=== PATIENT | female | born 1990 | race Hispanic/Latino ===

== ENCOUNTER 2018-05-29 22:43 | Emergency (ER) | payer SELFPAY ==
[~2018-05-29] VITALS: Ht 167.6 cm; Wt 67.1 kg
[~2018-05-29 22:43] MED LIST: MACROBID 100 M100 MG PO; TYLENOL WITH C1 EACH PO
--- OUTSIDE RECORDS SUMMARY | 2018-05-29 22:46 | XMS REPORT ---
Author Author [facility] Address Unknown Phone Unavailable Care Team Providers Care Disability Program Navigator Name Role Phone Unavailable Unavailable Payers Payer Name Policy Type Policy Number Effective Date Expiration Date Problems This patient has no known problems. Allergies, Adverse Reactions, Alerts Allergy Name Allergy Type Status Severity Reaction(s) Onset Date Inactive Date Treating Clinician Comments Penicillins DA Active [place] 2018-05-13 00:00:00 lidocaine DA Active [place] 2018-05-13 00:00:00 amoxicillin trihydrate DA Active [place] 2016-03-25 00:00:00 peanut DA Active [place] 2016-03-25 00:00:00 lidocaine DA Active [place] 2016-03-25 00:00:00 morphine DA Active [place] 2016-03-25 00:00:00 Medications This patient has no known medications.
--- OUTSIDE RECORDS SUMMARY | 2018-05-29 22:46 | XMS REPORT | Continuity of Care Document ---
Author Author [facility] Interface Address Unknown Phone Unavailable Problems Problem Status Onset Date Classification Date Reported Comments Source Discharge Diagnosis: Abdominal pain 09/03/2015 09/06/2015 [facility] ABD PAIN Active 09/03/2015 [facility] Discharge Diagnosis: UTI 02/12/2015 02/15/2015 [facility] Discharge Diagnosis: Back pain 02/12/2015 02/15/2015 [facility] Escherichia coli<sup>1, 2</sup> Active 02/12/2015 Problem 09/06/2015 Problem added by Discern Expert. [facility] BACK PAIN Active 02/12/2015 [facility] Medications Medication Details Route Status Patient Instructions Ordering Provider Order Date Source Dicyclomine Hydrochloride 20 MG Oral Tablet [Bentyl] 20 mg=1 tab, PO, QID-Before Meals, PRN Abdominal Pain, # 28 tab, 0 Refill(s) Active 09/03/2015 [facility] Ondansetron 8 MG Disintegrating Tablet [Zofran] 8 mg=1 tab, PO, TID, PRN Nausea and Vomiting, Dissolve tab under tongue, X 5 day, # 15 tab, 0 Refill(s) Active 09/03/2015 [facility] Benadryl 25 mg, Route: IVP, ONCE, Dosing Weight 59.091, kg, Priority: STAT, Start date: 09/03/15 15:36:00 CDT, Stop date: 09/03/15 15:36:00 CDT Inactive 09/03/2015 [facility] Levsin 0.25 mg, Route: IV, ONCE, Dosing Weight 59.091, kg, Priority: STAT, Start date: 09/03/15 15:18:00 CDT, Stop date: 09/03/15 15:18:00 CDT Inactive 09/03/2015 [facility] Ketorolac 30 mg, Route: IVP, Drug form: INJ, ONCE, Dosing Weight 59.091, kg, Priority: STAT, Start date: 09/03/15 15:17:00 CDT, Stop date: 09/03/15 15:17:00 CDT Inactive 09/03/2015 [facility] Reglan 10 mg, 2 mL, Route: IVP, Drug form: INJ, ONCE, Dosing Weight 59.091, kg, Priority: STAT, Start date: 09/03/15 12:35:00 CDT, Stop date: 09/03/15 12:35:00 CDTNotes: (Same as: Reglan) Inactive 09/03/2015 [facility] Zofran 4 mg, 2 mL, Route: IVP, Drug form: INJ, ONCE, Dosing Weight 63.636, kg, Priority: STAT, Start date: 09/03/15 12:08:00 CDT, Stop date: 09/03/15 12:08:00 CDTNotes: (Same as: Zofran) MEDICATION WASTE Product Size: 4 mg Product Wasted: ___ mg Inactive 09/03/2015 [facility] Levsin 0.25 mg, 0.5 mL, Route: IV, Drug form: INJ, ONCE, Dosing Weight 63.636, kg, Start date: 09/03/15 12:08:00 CDT, Stop date: 09/03/15 12:08:00 CDTNotes: (Same as: Levsin) MEDICATION WASTE Pro duct Size: 0.5 mg Product Wasted: ___ mg Inactive 09/03/2015 [facility] Sodium Chloride 0.154 MEQ/ML Injectable Solution 1,000 mL, 1,000 ml/hr, Infuse Over: 1 hr, Route: IV, 1,000, Drug form: INJ, ONCE, Priority: STAT, Dosing Weight 63.636 kg, Start date: 09/03/15 12:08:00 CDT, Duration: 1 doses or times, Stop date: 09/03/15 12:08:00 CDT Inactive 09/03/2015 [facility] Nitrofurantoin 100 MG Oral Capsule [Macrobid] 100 mg=1 cap, PO, BID, X 7 day, # 14 cap, 0 Refill(s) Active 02/12/2015 [facility] Benadryl 25 mg, Route: PO, Drug form: CAP, ONCE, Dosing Weight 63.636, kg, Priority: STAT, Start date: 02/12/15 16:49:00, Stop date: 02/12/15 16:49:00 Inactive 02/12/2015 [facility] Dilaudid 0.5 mg, Route: IVP, ONCE, Dosing Weight 63.636, kg, Priority: STAT, Start date: 02/12/15 16:27:00, Stop date: 02/12/15 16:27:00 Inactive 02/12/2015 [facility] Dilaudid 0.5 mg, Route: IVP, ONCE, Dosing Weight 63.636, kg, Priority: STAT, Start date: 02/12/15 12:56:00, Stop date: 02/12/15 12:56:00 Inactive 02/12/2015 [facility] Sodium Chloride 0.154 MEQ/ML Injectable Solution 1,000 mL, 1,000 ml/hr, Infuse Over: 1 hr, Route: IV, ONCE, Priority: STAT, Dosing Weight 63.636 kg, Start date: 02/12/15 12:56:00, Duration: 1 doses or times, Stop date: 02/12/15 12:56:00 Inactive 02/12/2015 [facility] Sodium Chloride 0.154 MEQ/ML Injectable Solution 1,000 mL, 1,000 ml/hr, Infuse Over: 1 hr, Route: IV, ONCE, Priority: STAT, Dosing Weight 63.636 kg, Start date: 02/12/15 12:55:00, Duration: 1 doses or times, Stop date: 02/12/15 12:55:00 Inactive 02/12/2015 [facility] Allergies, Adverse Reactions, Alerts Substance Category Reaction Severity Reaction type Status Date Reported Comments Source amoxicillin Assertion Propensity to adverse reactions to drug Active [facility] Dilaudid Assertion Drug allergy Active [facility] lidocaine Assertion Drug allergy Active [facility] morphine Assertion Drug allergy Active [facility] Immunizations Immunization Date Given Site Status Last Updated Comments Source Results Order Name Results Value Reference Range Date Interpretation Comments Source CHEM PANEL eGFR 103 mL/min/1.73m2 09/03/2015 Result Comment: The eGFR is calculated using the CKD-EPI formula. In most young, healthy individuals the eGFR will be >90 mL/min/1.73m2. The eGFR declines with age. An eGFR of 60-89 may be normal in some populations, particularly the elderly, for whom the CKD-EPI formula has not been extensively validated. Use of the eGFR is not recommended in the following populations: Individuals with unstable creatinine concentrations, including patients and those with serious co-morbid conditions. Patients with extremes in muscle mass or diet. The data above are obtained from the National Kidney Disease Education Program (NKDEP) which additionally recommends that when the eGFR is used in patients with extremes of body mass index for purposes of drug dosing, the eGFR should be multiplied by the estimated BMI. [facility] CHEM PANEL CO2 25 meq/L 24 - 32 09/03/2015 [facility] CHEM PANEL Sodium Lvl 139 meq/L 135 - 145 09/03/2015 [facility] CHEM PANEL Creatinine Lvl 0.81 mg/dL 0.50 - 1.40 09/03/2015 [facility] CHEM PANEL BUN 10 mg/dL 7 - 22 09/03/2015 [facility] CHEM PANEL Glucose Lvl 117 mg/dL 70 - 99 09/03/2015 [facility] CHEM PANEL Chloride Lvl 107 meq/L 95 - 109 09/03/2015 [facility] CHEM PANEL Potassium Lvl 3.9 meq/L 3.5 - 5.1 09/03/2015 [facility] CHEM PANEL Bili Total 0.4 mg/dL 0.2 - 1.3 09/03/2015 [facility] CHEM PANEL Alk Phos 107 unit/L 39 - 136 09/03/2015 [facility] CHEM PANEL ALT 106 unit/L 0 - 65 09/03/2015 [facility] CHEM PANEL AST 79 unit/L 0 - 37 09/03/2015 [facility] CHEM PANEL Albumin Lvl 4.1 g/dL 3.5 - 5.0 09/03/2015 [facility] CHEM PANEL Total Protein 8.1 g/dL 6.4 - 8.4 09/03/2015 [facility] CHEM PANEL Calcium Lvl 9.1 mg/dL 8.5 - 10.5 09/03/2015 [facility] CHEM PANEL A/G Ratio 1.0 0.7 - 1.6 09/03/2015 [facility] CHEM PANEL B/C Ratio 12 6 - 25 09/03/2015 [facility] CHEM PANEL Globulin 4.0 g/dL 2.0 - 4.0 09/03/2015 [facility] CHEM PANEL AGAP 10.9 meq/L 10.0 - 20.0 09/03/2015 [facility] CHEM PANEL Lipase Lvl 126 unit/L 73 - 393 09/03/2015 [facility] HEMATOLOGY MPV 7.9 fL 7.4 - 10.4 09/03/2015 [facility] HEMATOLOGY RDW 13.9 % 11.5 - 14.5 09/03/2015 [facility] HEMATOLOGY Platelet 328 K/CMM 133 - 450 09/03/2015 [facility] MCHC 32.8 g/dL 32.0 - 36.0 09/03/2015 [facility] HEMATOLOGY Hct 45.0 % 36.0 - 48.0 09/03/2015 [facility] HEMATOLOGY MCV 88.2 fL 80.0 - 98.0 09/03/2015 [facility] Hgb 14.7 g/dL 12.0 - 16.0 09/03/2015 [facility] HEMATOLOGY WBC 7.5 K/CMM 3.7 - 10.4 09/03/2015 [facility] MCH 28.9 pg 27.0 - 31.0 09/03/2015 [facility] RBC 5.10 M/CMM 4.20 - 5.40 09/03/2015 [facility] Lymphocytes 6.8 % 20.0 - 40.0 09/03/2015 [facility] HEMATOLOGY Monocytes 2.7 % 2.0 - 12.0 09/03/2015 [facility] HEMATOLOGY Segs 90.3 % 45.0 - 75.0 09/03/2015 [facility] HEMATOLOGY Basophils 0.2 % 0.0 - 1.0 09/03/2015 [facility] HEMATOLOGY Lymphocytes # 0.5 K/CMM 1.0 - 5.5 09/03/2015 [facility] HEMATOLOGY Monocytes # 0.2 K/CMM 0.0 - 0.8 09/03/2015 [facility] HEMATOLOGY Segs-Bands # 6.8 K/CMM 1.5 - 8.1 09/03/2015 [facility] URINE AND STOOL UA Urobilinogen <=1.0 mg/dL 0.1 - 1.0 09/03/2015 [facility] URINE AND STOOL UA Color Yellow *NA* (09/03/15 1:04 PM) Yellow 09/03/2015 [facility] URINE AND STOOL UA Spec Grav 1.021 <=1.030 09/03/2015 [facility] URINE AND STOOL UA Turbidity Slight *ABN* (09/03/15 1:04 PM) Clear 09/03/2015 [facility] URINE AND STOOL UA Glucose 150 mg/dL Negative mg/dL 09/03/2015 [facility] URINE AND STOOL UA Ketones Negative mg/dL Negative mg/dL 09/03/2015 [facility] URINE AND STOOL UA Protein Negative mg/dL Negative mg/dL 09/03/2015 [facility] URINE AND STOOL UA pH 6.0 5.0 - 8.0 09/03/2015 [facility] URINE AND STOOL UA Leuk Est Small *ABN* (09/03/15 1:04 PM) Negative 09/03/2015 [facility] URINE AND STOOL UA WBC 6 /HPF 0 - 5 09/03/2015 [facility] URINE AND STOOL UA Sq Epi Many /LPF Few /LPF 09/03/2015 [facility] URINE AND STOOL UA Bili Negative *NA* (09/03/15 1:04 PM) Negative 09/03/2015 [facility] URINE AND STOOL UA Nitrite Negative (09/03/15 1:04 PM) Negative 09/03/2015 [facility] URINE AND STOOL UA Blood Moderate *ABN* (09/03/15 1:04 PM) Negative 09/03/2015 [facility] URINE AND STOOL UA Bacteria Many /HPF None Seen /HPF 09/03/2015 [facility] URINE AND STOOL UA RBC 2 /HPF 0 - 2 09/03/2015 [facility] URINE CHEM U Preg Negative (09/03/15 1:04 PM) Negative 09/03/2015 [facility] Pelvis w Transvag and Pelvis Doppler US Pelvis w Transvag and Pelvis Doppler US ULTRASOUND PELVIS WITH DOPPLER TECHNIQUE: Grayscale, color and Doppler transabdominal and transvaginal imaging of the pelvis was performed with standard technique. HISTORY: Abdominal pain, acute; right lower quadrant pain COMPARISON: CT abdomen/pelvis dated 09/03/2015 FINDINGS: TRANSABDOMINAL: The uterus measures 8.7 x 2.7 x 5.2 cm in size. The uterine parenchyma appears normal without evidence of fibroids. The ovaries and endometrial stripe are best characterized transvaginally. TRANSVAGINAL: Normal uterine contour and morphology. There is normal parenchymal echotexture. The endometrial stripe is normal and measures 2 mm in thickness. Intrauterine device in place in expected positioning. Both ovaries are normal in size and appearance. The right ovary measures 2.4 x 2.9 x 1.5 cm and the left ovary measures 3.8 x 2.0 x 4.0 cm. Doppler evaluation reveals normal arterial and venous waveforms in both ovaries. There are no adnexal masses. There is no free fluid in the pelvic cul-de-sac. IMPRESSION: Normal study Intrauterine device in expected positioning. SL: [id number] 09/03/2015 - - Read by: Steve Pool MD Dictated Date/time: 09/03/15 15:43 Electronically Signed by: Steve Pool MD 09/03/15 15:45 FINAL REPORT [facility] ED Abdomen/Pelvis IV contrast only CT ED Abdomen/Pelvis IV contrast only CT Study: ED Abdomen/Pelvis IV contrast only CT Clinical Indication: Right lower quadrant pain Comparison: None TECHNIQUE: Multiple axial CT images of the abdomen and pelvis were acquired following the administration of intravenous contrast. Sagittal and coronal reformatted images were performed. CT Radiation Dose DLP 1366.95 mGy-cm FINDINGS: The visualized lung bases are clear bilaterally. Diffuse cortical scarring throughout the right kidney is seen. Multiple subcentimeter calyceal stones throughout the right kidney varying in size from 2 mm to 5 mm are seen. Patient is status post cholecystectomy. No intrahepatic or extra hepatic biliary duct dilatation is seen. Liver, pancreas, spleen, adrenal glands, and left kidney are unremarkable. Urinary bladder is well-distended. Intrauterine device in the uterus is seen. Visualized ovaries are unremarkable.The visualized hollow viscera and appendix are normal in appearance. No intraperitoneal free air, free fluid, or pathologic adenopathy is seen. The superficial soft tissues are unremarkable. No suspicious osseous lesions are seen. IMPRESSION: 1. No acute intra-abdominal/pelvic abnormality. 2. Nonobstructive right nephrolithiasis. SL: [id number] 09/03/2015 - - Read by: Victor Hugo Hart MD Dictated Date/time: 09/03/15 14:19 Electronically Signed by: Victor Hugo Hart MD 09/03/15 14:21 FINAL REPORT [facility] URINE AND STOOL UA Urobilinogen <=1.0 mg/dL 0.1 - 1.0 02/12/2015 [facility] URINE AND STOOL UA Color Ltyellow 02/12/2015 [facility] URINE AND STOOL UA RBC 1 /HPF 0 - 2 02/12/2015 [facility] URINE AND STOOL UA Leuk Est Small *ABN* (02/12/15 5:13 PM) Negative 02/12/2015 [facility] URINE AND STOOL UA Sq Epi Moderate /LPF Few /LPF 02/12/2015 [facility] URINE AND STOOL UA WBC 18 /HPF 0 - 5 02/12/2015 [facility] URINE AND STOOL UA Blood Small *ABN* (02/12/15 5:13 PM) Negative 02/12/2015 [facility] URINE AND STOOL UA Nitrite Negative (02/12/15 5:13 PM) Negative 02/12/2015 [facility] URINE AND STOOL UA pH 5.0 5.0 - 8.0 02/12/2015 [facility] URINE AND STOOL UA Protein Negative mg/dL Negative mg/dL 02/12/2015 [facility] URINE AND STOOL UA Turbidity Marked *ABN* (02/12/15 5:13 PM) Clear 02/12/2015 [facility] URINE AND STOOL UA Spec Grav 1.016 <=1.030 02/12/2015 [facility] URINE AND STOOL UA Bili Negative *NA* (02/12/15 5:13 PM) Negative 02/12/2015 [facility] URINE AND STOOL UA Glucose Negative mg/dL Negative mg/dL 02/12/2015 [facility] URINE AND STOOL UA Ketones 20 mg/dL Negative mg/dL 02/12/2015 [facility] CARDIAC ENZYMES Total CK 69 unit/L 12 - 191 02/12/2015 [facility] CHEM PANEL eGFR 91 mL/min/1.73m2 02/12/2015 Result Comment: The eGFR is calculated using the CKD-EPI formula. In most young, healthy individuals the eGFR will be >90 mL/min/1.73m2. The eGFR declines with age. An eGFR of 60-89 may be normal in some populations, particularly the elderly, for whom the CKD-EPI formula has not been extensively validated. Use of the eGFR is not recommended in the following populations: Individuals with unstable creatinine concentrations, including patients and those with serious co-morbid conditions. Patients with extremes in muscle mass or diet. The data above are obtained from the National Kidney Disease Education Program (NKDEP) which additionally recommends that when the eGFR is used in patients with extremes of body mass index for purposes of drug dosing, the eGFR should be multiplied by the estimated BMI. [facility] CHEM PANEL AST 21 unit/L 0 - 37 02/12/2015 [facility] CHEM PANEL Alk Phos 113 unit/L 39 - 136 02/12/2015 [facility] CHEM PANEL Bili Total 0.8 mg/dL 0.2 - 1.3 02/12/2015 [facility] CHEM PANEL ALT 58 unit/L 0 - 65 02/12/2015 [facility] CHEM PANEL Albumin Lvl 4.4 g/dL 3.5 - 5.0 02/12/2015 [facility] CHEM PANEL Total Protein 8.5 g/dL 6.4 - 8.4 02/12/2015 [facility] CHEM PANEL Creatinine Lvl 0.9 mg/dL 0.5 - 1.4 02/12/2015 [facility] CHEM PANEL Glucose Lvl 135 mg/dL 70 - 99 02/12/2015 [facility] CHEM PANEL BUN 11 mg/dL 7 - 22 02/12/2015 [facility] CHEM PANEL CO2 23 meq/L 24 - 32 02/12/2015 [facility] CHEM PANEL Calcium Lvl 9.7 mg/dL 8.5 - 10.5 02/12/2015 [facility] CHEM PANEL Chloride Lvl 104 meq/L 95 - 109 02/12/2015 [facility] CHEM PANEL Potassium Lvl 3.9 meq/L 3.5 - 5.1 02/12/2015 [facility] CHEM PANEL Sodium Lvl 136 meq/L 135 - 145 02/12/2015 [facility] CHEM PANEL A/G Ratio 1.1 0.7 - 1.6 02/12/2015 [facility] CHEM PANEL Globulin 4.1 g/dL 2.0 - 4.0 02/12/2015 [facility] CHEM PANEL B/C Ratio 12 6 - 25 02/12/2015 [facility] CHEM PANEL AGAP 12.9 meq/L 10.0 - 20.0 02/12/2015 [facility] ENDOCRINOLOGY S Preg Negative *NA* (02/12/15 1:18 PM) Negative 02/12/2015 [facility] HEMATOLOGY Monocytes # 0.6 K/CMM 0.0 - 0.8 02/12/2015 [facility] HEMATOLOGY Basophils # 0.1 K/CMM 0.0 - 0.2 02/12/2015 [facility] HEMATOLOGY Basophils 0.9 % 0.0 - 1.0 02/12/2015 [facility] HEMATOLOGY Eosinophils 0.4 % 0.0 - 4.0 02/12/2015 [facility] HEMATOLOGY Lymphocytes # 2.0 K/CMM 1.0 - 5.5 02/12/2015 [facility] HEMATOLOGY Segs-Bands # 6.9 K/CMM 1.5 - 8.1 02/12/2015 [facility] HEMATOLOGY Monocytes 5.9 % 2.0 - 12.0 02/12/2015 [facility] HEMATOLOGY Lymphocytes 21.0 % 20.0 - 40.0 02/12/2015 [facility] HEMATOLOGY Segs 71.8 % 45.0 - 75.0 02/12/2015 [facility] INR 0.95 0.85 - 1.17 02/12/2015 [facility] PT 13.0 s 12.0 - 14.7 02/12/2015 [facility] PTT 28.4 s 22.9 - 35.8 02/12/2015 [facility] MPV 8.2 fL 7.4 - 10.4 02/12/2015 [facility] Platelet 361 K/CMM 133 - 450 02/12/2015 [facility] MCH 28.2 pg 27.0 - 31.0 02/12/2015 [facility] MCHC 32.7 g/dL 32.0 - 36.0 02/12/2015 [facility] RDW 13.5 % 11.5 - 14.5 02/12/2015 [facility] RBC 5.53 M/CMM 4.20 - 5.40 02/12/2015 [facility] Hgb 15.6 g/dL 12.0 - 16.0 02/12/2015 [facility] Hct 47.8 % 36.0 - 48.0 02/12/2015 [facility] MCV 86.4 fL 80.0 - 98.0 02/12/2015 [facility] WBC 9.6 K/CMM 3.7 - 10.4 02/12/2015 [facility] Spine lumbar w/wo contrast MRI Spine lumbar w/wo contrast MRI PROCEDURE: Spine lumbar w/wo contrast MRI REASON FOR EXAM: LP 2-3 weeks ago now with worsening lumbar pain and lower ext weakness CLINICAL INDICATION: Pain with radiculopathy COMPARISON: None available. FINDINGS: No fracture is seen. Vertebral body heights are maintained. No abnormal marrow signal. No evidence of discitis/osteomyelitis. No soft tissue inflammatory signal or abnormal soft tissue enhancement. No soft tissue abscess or fluid collection. No evidence of facet arthritis. No canal stenosis or neural foraminal narrowing in the lumbar spine. No epidural fluid collection or hematoma. Intracanalicular nerve roots appear normal. No MR evidence of arachnoiditis. The intervertebral discs are normal. No disc protrusion is seen. Moderate irregular right renal cortical atrophy. Moderate proximal right hydroureter. IMPRESSION: 1. Normal lumbar spine without canal stenosis, neural foraminal narrowing, evidence of spinal infection, or degenerative changes. 2. Moderate irregular right renal cortical atrophy with moderate proximal right hydroureter. SL: 16 02/12/2015 - - Read by: Steve Pool MD Dictated Date/time: 02/12/15 16:12 Electronically Signed by: Steve Pool MD 02/12/15 16:28 FINAL REPORT [facility] Vital Signs Vital Sign Value Date Comments Source Temperature Oral (F) 98.4 F 09/03/2015 [facility] Respitory Rate 16 09/03/2015 [facility] Systolic (mm Hg) 99 09/03/2015 [facility] Diastolic (mm Hg) 66 09/03/2015 [facility] Heart Rate 84 09/03/2015 [facility] Weight 59.091 09/03/2015 [facility] Height 152.4 cm 09/03/2015 [facility] BMI Calculated 25.44 09/03/2015 [facility] Temperature Oral (F) 98.1 F 09/03/2015 [facility] Heart Rate 112 09/03/2015 [facility] Systolic (mm Hg) 157 09/03/2015 [facility] Diastolic (mm Hg) 102 09/03/2015 [facility] Respitory Rate 20 09/03/2015 [facility] Heart Rate 68 02/12/2015 [facility] Respitory Rate 16 02/12/2015 [facility] Systolic (mm Hg) 120 02/12/2015 [facility] Diastolic (mm Hg) 79 02/12/2015 [facility] Temperature Oral (F) 98.6 F 02/12/2015 [facility] Respitory Rate 16 02/12/2015 [facility] Systolic (mm Hg) 130 02/12/2015 [facility] Diastolic (mm Hg) 88 02/12/2015 [facility] Heart Rate 87 02/12/2015 [facility] BMI Calculated 22.64 02/12/2015 [facility] Weight 63.636 02/12/2015 [facility] Height 167.64 cm 02/12/2015 [facility] Respitory Rate 18 02/12/2015 [facility] Heart Rate 83 02/12/2015 [facility] Systolic (mm Hg) 128 02/12/2015 [facility] Diastolic (mm Hg) 89 02/12/2015 [facility] Temperature Oral (F) 98.1 F 02/12/2015 [facility] Encounters Location Location Details Encounter Type Encounter Number Reason For Visit Attending Provider ADM Date DC Date Status Source [facility] [id number] Moreno Rudolph 02/12/2015 02/12/2015 [facility] [id number] Nadhussain Preston 09/03/2015 09/03/2015 [facility] Procedures Procedure Code Date Perfomer Comments Source section [id number] [facility] Cholecystectomy [id number] [facility]
--- OUTSIDE RECORDS SUMMARY | 2018-05-29 22:46 | XMS REPORT | Summary of Care ---
Author Author [facility] Organization [facility] Address Unknown Phone Unavailable Encounter BRENDAN [place](MARIA L) [phone] Date(s): 09/03/15 - 09/03/15 [facility] [address] [place] [address]- Discharge Diagnosis: Abdominal pain Discharge Disposition: Home Attending Physician: Callie Preston MD Vital Signs Most recent to 1 2 oldest [Reference Range]: Height 152.4 cm (09/03/15 12:08 PM) Temperature Oral 98.4 DegF 98.1 DegF [96.4-99.1 DegF] (09/03/15 4:36 PM) (09/03/15 12:08 PM) Blood Pressure 99/66 mmHg 157/102 mmHg [90-140/60-90 mmHg] (09/03/15 4:36 PM) *HI* (09/03/15 12:08 PM) Respiratory Rate 16 BRMIN 20 BRMIN [14-20 BRMIN] (09/03/15 4:36 PM) (09/03/15 12:08 PM) Peripheral Pulse 84 bpm 112 bpm Rate [60-100 bpm] (09/03/15 4:36 PM) *HI* (09/03/15 12:08 PM) Weight 59.091 kg (09/03/15 12:08 PM) Body Mass Index 25.44 m2 (09/03/15 12:08 PM) Problem List Condition Effective Dates Status Health Status Informant Escherichia 02/12/15 Active coli(Confirmed)1, 2 1urine ESBL+, 02/12/15 2Problem added by Discern Expert. Allergies, Adverse Reactions, Alerts Substance Reaction Severity Status amoxicillin Active Dilaudid Active lidocaine Active morphine Active Medications Benadryl 25 mg, Route: IVP, ONCE, Dosing Weight 59.091, kg, Priority: STAT, Start date: 0 09/03/15 15:36:00 CDT, Stop date: 09/03/15 15:36:00 CDT Start Date: 09/03/15 Stop Date: 09/03/15 Status: Completed Bentyl 20 mg oral tablet 20 mg=1 tab, PO, QID-Before Meals, PRN Abdominal Pain, # 28 tab, 0 Refill(s) Start Date: 09/03/15 Stop Date: 09/10/15 Status: Ordered ketOROLAC 30 mg, Route: IVP, Drug form: INJ, ONCE, Dosing Weight 59.091, kg, Priority: STA T, Start date: 09/03/15 15:17:00 CDT, Stop date: 09/03/15 15:17:00 CDT Start Date: 09/03/15 Stop Date: 09/03/15 Status: Completed Levsin 0.25 mg, Route: IV, ONCE, Dosing Weight 59.091, kg, Priority: STAT, Start date: 09/03/15 15:18:00 CDT, Stop date: 09/03/15 15:18:00 CDT Start Date: 09/03/15 Stop Date: 09/03/15 Status: Completed Levsin 0.25 mg, 0.5 mL, Route: IV, Drug form: INJ, ONCE, Dosing Weight 63.636, kg, Star t date: 09/03/15 12:08:00 CDT, Stop date: 09/03/15 12:08:00 CDT Notes: (Same as: Levsin) MEDICATION WASTE Product Size: 0.5 mgProduct W asted: ___ mg Start Date: 09/03/15 Stop Date: 09/03/15 Status: Completed NS (Bolus) IV 1,000 mL, 1,000 ml/hr, Infuse Over: 1 hr, Route: IV, 1,000, Drug form: INJ, ONCE , Priority: STAT, Dosing Weight 63.636 kg, Start date: 09/03/15 12:08:00 CDT, Du ration: 1 doses or times, Stop date: 09/03/15 12:08:00 CDT Start Date: 09/03/15 Stop Date: 09/03/15 Status: Completed Reglan 10 mg, 2 mL, Route: IVP, Drug form: INJ, ONCE, Dosing Weight 59.091, kg, Priorit y: STAT, Start date: 09/03/15 12:35:00 CDT, Stop date: 09/03/15 12:35:00 CDT Notes: (Same as: Reglan) Start Date: 09/03/15 Stop Date: 09/03/15 Status: Completed Zofran 4 mg, 2 mL, Route: IVP, Drug form: INJ, ONCE, Dosing Weight 63.636, kg, Priority : STAT, Start date: 09/03/15 12:08:00 CDT, Stop date: 09/03/15 12:08:00 CDT Notes: (Same as: Zofran) MEDICATION WASTE Product Size: 4 mgProduct Was irena: ___ mg Start Date: 09/03/15 Stop Date: 09/03/15 Status: Discontinued Zofran ODT 8 mg oral tablet, disintegrating 8 mg=1 tab, PO, TID, PRN Nausea and Vomiting, Dissolve tab under tongue, X 5 day , # 15 tab, 0 Refill(s) Start Date: 09/03/15 Stop Date: 09/08/15 Status: Ordered Results ELECTROLYTES Most recent to 1 oldest [Reference Range]: Sodium Lvl [135-145 139 mEq/L mEq/L] (09/03/15 1:04 PM) Potassium Lvl 3.9 mEq/L [3.5-5.1 mEq/L] (09/03/15 1:04 PM) Chloride Lvl [95-109 107 mEq/L mEq/L] (09/03/15 1:04 PM) CO2 [24-32 mEq/L] 25 mEq/L (09/03/15 1:04 PM) AGAP [10.0-20.0 10.9 mEq/L mEq/L] (09/03/15 1:04 PM) CHEM PANEL Most recent to 1 oldest [Reference Range]: Creatinine Lvl 0.81 mg/dL [0.50-1.40 mg/dL] (09/03/15 1:04 PM) eGFR 103 mL/min/1.73m2 1 *NA* (09/03/15 1:04 PM) BUN [7-22 mg/dL] 10 mg/dL (09/03/15 1:04 PM) B/C Ratio [6-25] 12 (09/03/15 1:04 PM) Glucose Lvl [70-99 117 mg/dL mg/dL] *HI* (09/03/15 1:04 PM) Total Protein 8.1 g/dL [6.4-8.4 g/dL] (09/03/15 1:04 PM) Albumin Lvl [3.5-5.0 4.1 g/dL g/dL] (09/03/15 1:04 PM) Globulin [2.0-4.0 4.0 g/dL g/dL] (09/03/15 1:04 PM) A/G Ratio [0.7-1.6] 1.0 (09/03/15 1:04 PM) Calcium Lvl 9.1 mg/dL [8.5-10.5 mg/dL] (09/03/15 1:04 PM) ALT [0-65 unit/L] 106 unit/L *HI* (09/03/15 1:04 PM) AST [0-37 unit/L] 79 unit/L *HI* (09/03/15 1:04 PM) Alk Phos [39-136 107 unit/L unit/L] (09/03/15 1:04 PM) Bili Total [0.2-1.3 0.4 mg/dL mg/dL] (09/03/15 1:04 PM) Lipase Lvl [73-393 126 unit/L unit/L] (09/03/15 1:04 PM) 1Result Comment: The eGFR is calculated using the [...] from the National Kid[employer] Disease Education Program ( NKDEP) which additionally recommends that when the eGFR is used in patients with extremes of body mass index for purposes of drug dosing, the eGFR should be mul tiplied by the estimated BMI. URINE CHEM Most recent to 1 oldest [Reference Range]: U Preg [Negative] Negative (09/03/15 1:04 PM) URINE AND STOOL Most recent to 1 oldest [Reference Range]: UA Turbidity [Clear] Slight *ABN* (09/03/15 1:04 PM) UA Color [Yellow] Yellow *NA* (09/03/15 1:04 PM) UA pH [5.0-8.0] 6.0 (09/03/15 1:04 PM) UA Spec Grav 1.021 [<=1.030] (09/03/15 1:04 PM) UA Glucose [Negative 150 mg/dL mg/dL] *ABN* (09/03/15 1:04 PM) UA Blood [Negative] Moderate *ABN* (09/03/15 1:04 PM) UA Ketones [Negative Negative mg/dL mg/dL] *NA* (09/03/15 1:04 PM) UA Protein [Negative Negative mg/dL mg/dL] (09/03/15 1:04 PM) UA Urobilinogen <=1.0 mg/dL [0.1-1.0 mg/dL] *NA* (09/03/15 1:04 PM) UA Bili [Negative] Negative *NA* (09/03/15 1:04 PM) UA Leuk Est Small [Negative] *ABN* (09/03/15 1:04 PM) UA Nitrite Negative [Negative] (09/03/15 1:04 PM) UA WBC [0-5 /HPF] 6 /HPF *HI* (09/03/15 1:04 PM) UA RBC [0-2 /HPF] 2 /HPF (09/03/15 1:04 PM) UA Bacteria [None Many /HPF Seen /HPF] *ABN* (09/03/15 1:04 PM) UA Sq Epi [Few /LPF] Many /LPF *ABN* (09/03/15 1:04 PM) HEMATOLOGY Most recent to 1 oldest [Reference Range]: WBC [3.7-10.4 K/CMM] 7.5 K/CMM (09/03/15 1:04 PM) RBC [4.20-5.40 5.10 M/CMM M/CMM] (09/03/15 1:04 PM) Hgb [12.0-16.0 g/dL] 14.7 g/dL (09/03/15 1:04 PM) Hct [36.0-48.0 %] 45.0 % (09/03/15 1:04 PM) MCV [80.0-98.0 fL] 88.2 fL (09/03/15 1:04 PM) MCH [27.0-31.0 pg] 28.9 pg (09/03/15 1:04 PM) MCHC [32.0-36.0 32.8 g/dL g/dL] (09/03/15 1:04 PM) RDW [11.5-14.5 %] 13.9 % (09/03/15 1:04 PM) Platelet [133-450 328 K/CMM K/CMM] (09/03/15 1:04 PM) MPV [7.4-10.4 fL] 7.9 fL (09/03/15 1:04 PM) Segs [45.0-75.0 %] 90.3 % *HI* (09/03/15 1:04 PM) Lymphocytes 6.8 % [20.0-40.0 %] *LOW* (09/03/15 1:04 PM) Monocytes [2.0-12.0 2.7 % %] (09/03/15 1:04 PM) Basophils [0.0-1.0 0.2 % %] (09/03/15 1:04 PM) Segs-Bands # 6.8 K/CMM [1.5-8.1 K/CMM] (09/03/15 1:04 PM) Lymphocytes # 0.5 K/CMM [1.0-5.5 K/CMM] *LOW* (09/03/15 1:04 PM) Monocytes # [0.0-0.8 0.2 K/CMM K/CMM] (09/03/15 1:04 PM) Immunizations No data available for this section Procedures Procedure Date Related Diagnosis Body Site section Cholecystectomy Social History Social History Type Response Smoking Status Never smoker; Exposure to Tobacco Smoke None; Cigarette Smoking Last 365 Days No; Reg Smoking Cessation Counseling No Assessment and Plan No data available for this section
--- OUTSIDE RECORDS SUMMARY | 2018-05-29 22:46 | XMS REPORT | Summary of Care ---
Author Author [facility] Organization [facility] Address Unknown Phone Unavailable Encounter HQ Padmini(MARIA L) [id number] Date(s): 02/12/15 - 02/12/15 [facility] [address] [place] [address]- Discharge Diagnosis: UTI (urinary tract infection) Discharge Diagnosis: Back pain Discharge Disposition: Home Attending Physician: Moreno Rudolph MD Vital Signs 1 2 3 Most recent to oldest [Reference Range]: 167.64 cm (02/12/15 12:29 PM) Height 1 2 3 Most recent to oldest [Reference Range]: 98.6 DegF (02/12/15 6:11 PM) 98.1 DegF (02/12/15 12:29 PM) Temperature Oral [96.4-99.1 DegF] 1 2 3 Most recent to oldest [Reference Range]: 120/79 mmHg (02/12/15 6:11 PM) 130/88 mmHg (02/12/15 2:49 PM) 128/89 mmHg (02/12/15 12:29 PM) Blood Pressure [90-140/60-90 mmHg] 1 2 3 Most recent to oldest [Reference Range]: 16 BRMIN (02/12/15 6:11 PM) 16 BRMIN (02/12/15 2:49 PM) 18 BRMIN (02/12/15 12:29 PM) Respiratory Rate [14-20 BRMIN] 1 2 3 Most recent to oldest [Reference Range]: 68 bpm (02/12/15 6:11 PM) 87 bpm (02/12/15 2:49 PM) 83 bpm (02/12/15 12:29 PM) Peripheral Pulse Rate [60-100 bpm] 1 2 3 Most recent to oldest [Reference Range]: 63.636 kg (02/12/15 12:29 PM) Weight 1 2 3 Most recent to oldest [Reference Range]: 22.64 m2 (02/12/15 12:29 PM) Body Mass Index Problem List No data available for this section Allergies, Adverse Reactions, Alerts Substance Reaction Severity Status amoxicillin Active Dilaudid Active lidocaine Active morphine Active Medications Benadryl 25 mg, Route: PO, Drug form: CAP, ONCE, Dosing Weight 63.636, kg, Priority: STAT , Start date: 02/12/15 16:49:00, Stop date: 02/12/15 16:49:00 Start Date: 02/12/15 Stop Date: 02/12/15 Status: Completed Dilaudid 0.5 mg, Route: IVP, ONCE, Dosing Weight 63.636, kg, Priority: STAT, Start date: 02/12/15 16:27:00, Stop date: 02/12/15 16:27:00 Start Date: 02/12/15 Stop Date: 02/12/15 Status: Completed Dilaudid 0.5 mg, Route: IVP, ONCE, Dosing Weight 63.636, kg, Priority: STAT, Start date: 02/12/15 12:56:00, Stop date: 02/12/15 12:56:00 Start Date: 02/12/15 Stop Date: 02/12/15 Status: Completed Macrobid 100 mg oral capsule 100 mg=1 cap, PO, BID, X 7 day, # 14 cap, 0 Refill(s) Start Date: 02/12/15 Stop Date: 02/19/15 Status: Ordered Sodium Chloride 0.9% (Bolus) IV 1,000 mL, 1,000 ml/hr, Infuse Over: 1 hr, Route: IV, ONCE, Priority: STAT, Dosin g Weight 63.636 kg, Start date: 02/12/15 12:56:00, Duration: 1 doses or times, S top date: 02/12/15 12:56:00 Start Date: 02/12/15 Stop Date: 02/12/15 Status: Completed Sodium Chloride 0.9% (Bolus) IV 1,000 mL, 1,000 ml/hr, Infuse Over: 1 hr, Route: IV, ONCE, Priority: STAT, Dosin g Weight 63.636 kg, Start date: 02/12/15 12:55:00, Duration: 1 doses or times, S top date: 02/12/15 12:55:00 Start Date: 02/12/15 Stop Date: 02/12/15 Status: Completed Results ELECTROLYTES Most recent to 1 oldest [Reference Range]: Sodium Lvl [135-145 136 mEq/L mEq/L] (02/12/15 1:18 PM) Potassium Lvl 3.9 mEq/L [3.5-5.1 mEq/L] (02/12/15 1:18 PM) Chloride Lvl [95-109 104 mEq/L mEq/L] (02/12/15 1:18 PM) CO2 [24-32 mEq/L] 23 mEq/L *LOW* (02/12/15 1:18 PM) AGAP [10.0-20.0 12.9 mEq/L mEq/L] (02/12/15 1:18 PM) CHEM PANEL Most recent to 1 oldest [Reference Range]: Creatinine Lvl 0.9 mg/dL [0.5-1.4 mg/dL] (02/12/15 1:18 PM) eGFR 91 mL/min/1.73m2 1 *NA* (02/12/15 1:18 PM) BUN [7-22 mg/dL] 11 mg/dL (02/12/15 1:18 PM) B/C Ratio [6-25] 12 (02/12/15 1:18 PM) Glucose Lvl [70-99 135 mg/dL mg/dL] *HI* (02/12/15 1:18 PM) Total Protein 8.5 g/dL [6.4-8.4 g/dL] *HI* (02/12/15 1:18 PM) Albumin Lvl [3.5-5.0 4.4 g/dL g/dL] (02/12/15 1:18 PM) Globulin [2.0-4.0 4.1 g/dL g/dL] *HI* (02/12/15 1:18 PM) A/G Ratio [0.7-1.6] 1.1 (02/12/15 1:18 PM) Calcium Lvl 9.7 mg/dL [8.5-10.5 mg/dL] (02/12/15 1:18 PM) ALT [0-65 unit/L] 58 unit/L (02/12/15 1:18 PM) AST [0-37 unit/L] 21 unit/L (02/12/15 1:18 PM) Alk Phos [39-136 113 unit/L unit/L] (02/12/15 1:18 PM) Bili Total [0.2-1.3 0.8 mg/dL mg/dL] (02/12/15 1:18 PM) 1Result Comment: The eGFR is calculated [...] be mul tiplied by the estimated BMI. CARDIAC ENZYMES Most recent to 1 oldest [Reference Range]: Total CK [12-191 69 unit/L unit/L] (02/12/15 1:18 PM) ENDOCRINOLOGY Most recent to 1 oldest [Reference Range]: S Preg [Negative] Negative *NA* (02/12/15 1:18 PM) URINE AND STOOL Most recent to 1 oldest [Reference Range]: UA Turbidity [Clear] Marked *ABN* (02/12/15 5:13 PM) UA Color Ltyellow *NA* (02/12/15 5:13 PM) UA pH [5.0-8.0] 5.0 (02/12/15 5:13 PM) UA Spec Grav 1.016 [<=1.030] (02/12/15 5:13 PM) UA Glucose [Negative Negative mg/dL mg/dL] *NA* (02/12/15 5:13 PM) UA Blood [Negative] Small *ABN* (02/12/15 5:13 PM) UA Ketones [Negative 20 mg/dL mg/dL] *ABN* (02/12/15 5:13 PM) UA Protein [Negative Negative mg/dL mg/dL] (02/12/15 5:13 PM) UA Urobilinogen <=1.0 mg/dL [0.1-1.0 mg/dL] *NA* (02/12/15 5:13 PM) UA Bili [Negative] Negative *NA* (02/12/15 5:13 PM) UA Leuk Est Small [Negative] *ABN* (02/12/15 5:13 PM) UA Nitrite Negative [Negative] (02/12/15 5:13 PM) UA WBC [0-5 /HPF] 18 /HPF *HI* (02/12/15 5:13 PM) UA RBC [0-2 /HPF] 1 /HPF (02/12/15 5:13 PM) UA Sq Epi [Few /LPF] Moderate /LPF *ABN* (02/12/15 5:13 PM) HEMATOLOGY Most recent to 1 oldest [Reference Range]: WBC [3.7-10.4 K/CMM] 9.6 K/CMM (02/12/15 1:18 PM) RBC [4.20-5.40 5.53 M/CMM M/CMM] *HI* (02/12/15 1:18 PM) Hgb [12.0-16.0 g/dL] 15.6 g/dL (02/12/15 1:18 PM) Hct [36.0-48.0 %] 47.8 % (02/12/15 1:18 PM) MCV [80.0-98.0 fL] 86.4 fL (02/12/15 1:18 PM) MCH [27.0-31.0 pg] 28.2 pg (02/12/15 1:18 PM) MCHC [32.0-36.0 32.7 g/dL g/dL] (02/12/15 1:18 PM) RDW [11.5-14.5 %] 13.5 % (02/12/15 1:18 PM) Platelet [133-450 361 K/CMM K/CMM] (02/12/15 1:18 PM) MPV [7.4-10.4 fL] 8.2 fL (02/12/15 1:18 PM) Segs [45.0-75.0 %] 71.8 % (02/12/15 1:18 PM) Lymphocytes 21.0 % [20.0-40.0 %] (02/12/15 1:18 PM) Monocytes [2.0-12.0 5.9 % %] (02/12/15 1:18 PM) Eosinophils [0.0-4.0 0.4 % %] (02/12/15 1:18 PM) Basophils [0.0-1.0 0.9 % %] (02/12/15 1:18 PM) Segs-Bands # 6.9 K/CMM [1.5-8.1 K/CMM] (02/12/15 1:18 PM) Lymphocytes # 2.0 K/CMM [1.0-5.5 K/CMM] (02/12/15 1:18 PM) Monocytes # [0.0-0.8 0.6 K/CMM K/CMM] (02/12/15 1:18 PM) Basophils # [0.0-0.2 0.1 K/CMM K/CMM] (02/12/15 1:18 PM) PT [12.0-14.7 13.0 seconds seconds] (02/12/15 1:18 PM) INR [0.85-1.17] 0.95 (02/12/15 1:18 PM) PTT [22.9-35.8 28.4 seconds seconds] (02/12/15 1:18 PM) Immunizations No data available for this section Procedures Procedure Date Related Diagnosis Body Site section Cholecystectomy Social History Social History Type Response Smoking Status Never smoker; Exposure to Tobacco Smoke None; Cigarette Smoking Last 365 Days No; Reg Smoking Cessation Counseling No Assessment and Plan No data available for this section
[2018-05-29] MEDS ORDERED: SODIUM CHLORIDE 0.9% 1000ML 1,000 ML IV STA (23:37)
[2018-05-29] MEDS ORDERED: ONDANSETRON HCL INJ 2 MG/ML VIAL IV ONE (23:45)
[2018-05-29] MEDS ORDERED: FAMOTIDINE 20 MG/2 ML VIAL IV ONE (23:45)
[2018-05-29] MEDS ORDERED: KETOROLAC TROMETHAMINE 30 MG/ML VIAL IV ONE (23:45)
[2018-05-29] MEDS ORDERED: CEFTRIAXONE SOD 1 GM VIAL IV ONE (23:45)
[2018-05-30 01:42] LABS: BASOPHILS % 0.4 % (0.0-1.0); EOSINOPHILS # (AUTO) 0.1 (0.0-0.4); EOSINOPHILS % 1.4 % (0.0-6.0); HEMATOCRIT 41.9 % (34.2-44.1); HEMOGLOBIN 13.8 g/dL (12.0-16.0); LYMPHOCYTES # (AUTO) 2.5 (1.0-3.2); LYMPHOCYTES % 32.2 % (18.0-39.1); MEAN CORPUSCULAR HEMOGLOBIN 29.2 pg (28-32); MEAN CORPUSCULAR HGB CONC 32.9 g/dL (31-35); MEAN CORPUSCULAR VOLUME 88.6 fL (81-99); MONOCYTES # (AUTO) 0.6 (0.2-0.8); MONOCYTES % 7.2 % (4.4-11.3); NEUTROPHILS # (AUTO) 4.5 (2.1-6.9); NEUTROPHILS % 58.7 % (38.7-80.0); PLATELET COUNT 298 x10e3/uL (140-360); RED BLOOD COUNT 4.73 x10e6/uL (3.6-5.1); RED CELL DISTRIBUTION WIDTH 12.3 % (11.7-14.4)
[2018-05-30 01:48] LABS: CLARITY,URINE CLOUDY (CLEAR); COLOR,URINE YELLOW (YELLOW); LEUKOCYTE ESTERASE ,URINE 2+ (NEGATIVE); NITRITE,URINE POSITIVE (NEGATIVE); PROTEIN,URINE DIPSTICK NEGATIVE (NEGATIVE)
[2018-05-30 01:49] LABS: BILIRUBIN,URINE NEGATIVE (NEGATIVE); KETONES,URINE NEGATIVE (NEGATIVE); URINE UROBILINOGEN 0.2 mg/dL (0.2 - 1)
[2018-05-30 01:55] LABS: BACTERIA,URINE MANY /HPF; EPITHELIAL CELLS,URINE MANY /LPF; TRANSITIONAL EPI CELLS,URINE FEW; WBC,URINE (MAN) 21-50 /HPF (0-5)
[2018-05-30 01:59] LABS: ALANINE AMINOTRANSFERASE 10 IU/L (0-55); ALBUMIN 3.6 g/dL (3.5-5.0); ALBUMIN/GLOBULIN RATIO 1.1 (0.8-2.0); ALKALINE PHOSPHATASE 57 IU/L (40-150); ANION GAP 11.8 mmol/L (8-16); BLOOD UREA NITROGEN 16 mg/dL (7-26); BUN/CREATININE RATIO 20 (6-25); CALCIUM 8.3 mg/dL (8.4-10.2); CARBON DIOXIDE 26 mmol/L (22-29); CHLORIDE 102 mmol/L (98-107); CREATININE, SERUM 0.79 mg/dL (0.57-1.11); EST GLOMERULAR FILTRATION RATE > 60 ML/MIN (60-); GLUCOSE 94 mg/dL (74-118); POTASSIUM 3.8 mmol/L (3.5-5.1); SODIUM 136 mmol/L (136-145)
== END 2018-05-30 02:52 | disposition home or self-care (01) ==
LOC: ER 22:43
DX: N10 Acute pyelonephritis (principal); N30.90 Cystitis, unspecified without hematuria; Z87.442 Personal history of urinary calculi
CPT/HCPCS: 36415; 80053; 81001; 81025; 85025; 99284; J0696; J1885; J2405; J7030

== ENCOUNTER 2018-06-12 18:47 | Emergency (ER) | payer SELFPAY ==
[~2018-06-12] VITALS: Ht 167.6 cm; Wt 67.1 kg
[2018-06-12] MEDS ORDERED: ONDANSETRON HCL INJ 2MG/ML 2ML 2 MG/ML VIAL IV NR (21:00)
[2018-06-12] MEDS ORDERED: SODIUM CHLORIDE 0.9% 1000ML 1,000 ML IV ONE (21:00)
[2018-06-12 21:17] LABS: BASOPHILS # (AUTO) 0.1 (0.0-0.1); BASOPHILS % 0.6 % (0.0-1.0); EOSINOPHILS # (AUTO) 0.1 (0.0-0.4); EOSINOPHILS % 1.1 % (0.0-6.0); HEMATOCRIT 42.6 % (34.2-44.1); HEMOGLOBIN 13.8 g/dL (12.0-16.0); LYMPHOCYTES # (AUTO) 2.6 (1.0-3.2); LYMPHOCYTES % 28.3 % (18.0-39.1); MEAN CORPUSCULAR HEMOGLOBIN 28.6 pg (28-32); MEAN CORPUSCULAR HGB CONC 32.4 g/dL (31-35); MEAN CORPUSCULAR VOLUME 88.4 fL (81-99); MONOCYTES # (AUTO) 0.5 (0.2-0.8); MONOCYTES % 5.7 % (4.4-11.3); NEUTROPHILS # (AUTO) 5.8 (2.1-6.9); NEUTROPHILS % 64.1 % (38.7-80.0); PLATELET COUNT 323 x10e3/uL (140-360); RED BLOOD COUNT 4.82 x10e6/uL (3.6-5.1); RED CELL DISTRIBUTION WIDTH 12.3 % (11.7-14.4)
[2018-06-12 21:22] LABS: BILIRUBIN,URINE NEGATIVE (NEGATIVE); CLARITY,URINE HAZY (CLEAR); COLOR,URINE YELLOW (YELLOW); KETONES,URINE NEGATIVE (NEGATIVE); LEUKOCYTE ESTERASE ,URINE TRACE (NEGATIVE); NITRITE,URINE POSITIVE (NEGATIVE); PREGNANCY TEST, URINE NEGATIVE (NEGATIVE); PROTEIN,URINE DIPSTICK NEGATIVE (NEGATIVE); URINE UROBILINOGEN 0.2 mg/dL (0.2 - 1)
[2018-06-12 21:33] LABS: ALANINE AMINOTRANSFERASE 11 IU/L (0-55); ALBUMIN 4.2 g/dL (3.5-5.0); ALBUMIN/GLOBULIN RATIO 1.4 (0.8-2.0); ALKALINE PHOSPHATASE 76 IU/L (40-150); ANION GAP 14.9 mmol/L (8-16); BLOOD UREA NITROGEN 11 mg/dL (7-26); BUN/CREATININE RATIO 13 (6-25); CALCIUM 9.1 mg/dL (8.4-10.2); CARBON DIOXIDE 25 mmol/L (22-29); CHLORIDE 102 mmol/L (98-107); CREATININE, SERUM 0.82 mg/dL (0.57-1.11); EST GLOMERULAR FILTRATION RATE > 60 ML/MIN (60-); GLUCOSE 90 mg/dL (74-118); POTASSIUM 3.9 mmol/L (3.5-5.1); SODIUM 138 mmol/L (136-145)
[2018-06-12 21:45] LABS: BACTERIA,URINE MANY /HPF; EPITHELIAL CELLS,URINE MODERATE /LPF
[2018-06-12] MEDS ORDERED: KETOROLAC TROMETHAMINE 30 MG/ML VIAL IV NR (21:48)
--- NOTE | 2018-06-12 23:25 | Diagnostic Imaging Report ---
EXAM: CT ABDOMEN/PELVIS WO DATE: 06/12/2018 9:48 PM INDICATION: Right flank pain COMPARISON: 09/04/2015 TECHNIQUE: The abdomen and pelvis were scanned using a multidetector helical scanner. Coronal and sagittal reformations were obtained. CT low dose techniques were utilized, as applicable. IV Contrast: 0 ml Isovue 300/370 FINDINGS: Lack of IV contrast decreases sensitivity in evaluating abdominal and pelvic organs. LOWER THORAX: No consolidations LIVER/BILIARY: No masses. No ductal dilatation. GALLBLADDER: Surgically absent SPLEEN: Unremarkable PANCREAS: Unremarkable ADRENALS: No nodules KIDNEYS: Punctate nonobstructing left superior renal nephrolithiasis. No left hydronephrosis. Atrophic right kidney with parenchymal and nonobstructing renal calculi, similar in appearance to prior. No hydronephrosis. A 2 mm stone is seen in the right pelvis on image 141, favored to be extra ureteral. GI TRACT: No wall thickening or evidence of obstruction. Normal appendix. VESSELS: Unremarkable PERITONEUM/RETROPERITONEUM: No free air or fluid LYMPH NODES: No lymphadenopathy REPRODUCTIVE ORGANS/BLADDER: A tampon is noted in the vaginal cavity. Otherwise unremarkable noncontrast appearance. BONES: No suspicious bone lesions. IMPRESSION: Unchanged atrophic right kidney with parenchymal and nonobstructing renal calculi. No evidence of obstructive uropathy. Signed by: Dr Gaviota Cameron MD on 06/12/2018 11:22 PM
[2018-06-12] MEDS ORDERED: NITROFURANTOIN MACROCRYSTALS 100 MG CAP PO ONE (23:30)
== END 2018-06-13 00:15 | disposition home or self-care (01) ==
LOC: ER 18:47
DX: R10.30 Lower abdominal pain, unspecified (principal); R11.2 Nausea with vomiting, unspecified; R30.0 Dysuria; M54.5 Low back pain; N30.91 Cystitis, unspecified with hematuria
CPT/HCPCS: 36415; 74176; 80053; 81001; 81025; 85025; 96374; 96375; 99284; J1885; J2405; J7030

== ENCOUNTER 2022-02-06 19:46 | Emergency (ER) | payer MEDICARE ==
[~2022-02-06] VITALS: Ht 167.6 cm; Wt 67.1 kg
[~2022-02-06 19:46] MED LIST changes: +SODIUM CHLORIDE FLUSH 10 ML SYR IV PRN
[2022-02-06] MEDS ORDERED: ONDANSETRON HCL INJ 2MG/ML 2ML 2 MG/ML VIAL IV STA (20:34)
[2022-02-06] MEDS ORDERED: ACETAMINOPHEN 1000 MG/100 ML IV STA (20:34)
[2022-02-06] MEDS ORDERED: SODIUM CHLORIDE 0.9% 1000ML 1,000 ML IV SCH (20:35)
[2022-02-06] MEDS ORDERED: CEFTRIAXONE 1 GM VIAL IV ONE (20:45)
[2022-02-06 21:09] LABS: BASOPHILS # (AUTO) 0.1 (0.0-0.1); BASOPHILS % 0.4 % (0.0-1.0); EOSINOPHILS % 0.2 % (0.0-6.0); HEMOGLOBIN 13.7 g/dL (12.0-16.0); LYMPHOCYTES # (AUTO) 1.8 (1.0-3.2); LYMPHOCYTES % 15.7 % (18.0-39.1); MEAN CORPUSCULAR HEMOGLOBIN 26.1 pg (28-32); MEAN CORPUSCULAR HGB CONC 31.1 g/dL (31-35); MEAN CORPUSCULAR VOLUME 83.8 fL (81-99); MONOCYTES # (AUTO) 0.6 (0.2-0.8); MONOCYTES % 5.4 % (4.4-11.3); NEUTROPHILS # (AUTO) 9.1 (2.1-6.9); NEUTROPHILS % 77.9 % (38.7-80.0); PLATELET COUNT 442 x10e3/uL (140-360); RED BLOOD COUNT 5.25 x10e6/uL (3.6-5.1); RED CELL DISTRIBUTION WIDTH 14.1 % (11.7-14.4)
[2022-02-06 21:25] LABS: ANION GAP 16.9 mmol/L (8-16); CALCIUM 9.3 mg/dL (8.4-10.2); CREATININE, SERUM 0.8 mg/dL (0.57-1.11); POTASSIUM 3.9 mmol/L (3.5-5.1)
[2022-02-06 21:43] LABS: LIPASE 12 U/L (8-78)
[2022-02-06 22:31] LABS: AMPHETAMINES SCREEN,URINE NEGATIVE (NEGATIVE); PHENCYCLIDINE SCREEN,URINE NEGATIVE (NEGATIVE)
[2022-02-06 22:32] LABS: BENZODIAZEPINES SCREEN,URINE POSITIVE (NEGATIVE)
[2022-02-06 22:33] LABS: CLARITY,URINE CLEAR (CLEAR)
[2022-02-06 22:34] LABS: COLOR,URINE YELLOW (YELLOW); KETONES,URINE NEGATIVE (NEGATIVE); LEUKOCYTE ESTERASE ,URINE NEGATIVE (NEGATIVE); NITRITE,URINE NEGATIVE (NEGATIVE); PROTEIN,URINE DIPSTICK 1+ (NEGATIVE); URINE UROBILINOGEN 0.2 mg/dL (0.2 - 1)
[2022-02-06 22:38] LABS: WBC,URINE (MAN) 0-5 /HPF (0-5)
[2022-02-06 22:39] LABS: BACTERIA,URINE FEW /HPF; EPITHELIAL CELLS,URINE FEW /LPF
== END 2022-02-06 22:40 | disposition left against medical advice (07) ==
LOC: ER 19:50
DX: R10.30 Lower abdominal pain, unspecified (principal); R10.2 Pelvic and perineal pain; R11.0 Nausea; F12.10 Cannabis abuse, uncomplicated; Z87.442 Personal history of urinary calculi
CPT/HCPCS: 36415; 74176; 80053; 80307; 81001; 83690; 84702; 85025; 99284; J0131; J0696; J2405; J7030